=== PATIENT | female | born 1970 | race Caucasian/White ===

== ENCOUNTER → 2024-04-29 | Outpatient (CLI) | payer BC ==
--- NOTE | 2024-05-01 22:41 | MM ---
Reason for Exam: Screening (asymptomatic). Last mammogram was performed 14 year(s) and 0 month(s) ago. Patient History: Menarche at age 8. First Full-Term at age 15. Left ovary removed at age 48. Right ovary removed at age 48. Hysterectomy at age 48. Patient used Progesterone for 1 year. Currently using Hormonal Contraceptives, for 3 years. Paternal grandmother had breast cancer. Risk Values: Kelsi 5 year model risk: 0.9%. NCI Lifetime model risk: 6.7%. Prior Study Comparison: 06/04/2001 Bilateral Special View Mammogram, [facility]. 10/03/2007 Bilateral Diagnostic Mammogram, [facility]. 05/09/2010 Bilateral Diagnostic Mammogram, [facility]. Tissue Density: There are scattered areas of fibroglandular density. Findings: Analyzed By CAD. The pattern is symmetrical. Benign-appearing calcifications within the right breast. No suspicious groups of microcalcifications, spiculated or lobular masses, architectural distortion or other secondary signs of malignancy are mammographically apparent. Overall Assessment: Benign, BI-RAD 2 Management: Screening Mammogram of both breasts in 1 year. A negative mammogram report should not preclude additional follow up of suspicious palpable abnormalities. Patient should continue monthly self breast exam. A clinical breast exam by your physician is recommended on an annual basis and results should be correlated with mammographic findings. Note on Kelsi scores and lifetime risk: 1. A Kelsi score greater than 3% is considered moderate risk. If this is the case, consider specialist referral to assess eligibility for a risk reducing agent. 2. If overall lifetime risk for the development of breast cancer is 20% or higher, the patient may qualify for future screening with alternating mammogram and breast MRI. [facility], , 05/01/2024 10:38 PM. Electronically signed and approved by: Asaf Rider D.O. Radiologis
== END | disposition home or self-care (01) ==
LOC: RADMAMWWP 06:54
PROVIDERS: ATTEND Family Medicine
DX: Z12.31 Encounter for screening mammogram for malignant neoplasm of breast (principal); R92.323 Mammographic fibroglandular density, bilateral breasts; Z80.3 Family history of malignant neoplasm of breast
CPT/HCPCS: 77063; 77067

== ENCOUNTER 2024-04-30 01:27 | Observation (INO) | payer BC ==
--- NOTE | 2024-04-30 01:52 | ED ---
Abdominal Pain HPI - General Source: patient, RN notes reviewed Mode of arrival: wheelchair Limitations: no limitations <Rodney Pate - Last Filed: 04/30/24 03:20> <Tyler Mota - Last Filed: 04/30/24 05:58> - General Chief Complaint: Abdominal Pain Stated Complaint: back pain flank pain Time Seen by Provider: 04/30/24 01:34 - History of Present Illness Initial Comments: 53-year-old female presents emergency department complaint of right upper quadrant abdominal pain. Patient states pain started earlier tonight after she ate some fried fish. Patient states that she does have a history of gallstones in which she was told well. Patient states pain wraps around her upper right upper quadrant and epigastric denies any chest pain shortness of breath she does admit to nausea at the makes the pain feel better or worse at this time. No change in bowel habits she had a prior hysterectomy no history of kidney stones. (Rodney Pate) - Related Data Home Medications Medication Instructions Recorded Confirmed No Known Home Medications 07/18/14 07/18/14 Allergies Allergy/AdvReac Type Severity Reaction Status Date / Time No Known Allergies Allergy Verified 04/30/24 01:34 Review of Systems ROS Other: All systems not noted in ROS Statement are negative. <Rodney Pate - Last Filed: 04/30/24 03:20> ROS Other: All systems not noted in ROS Statement are negative. <Tyler Mota - Last Filed: 04/30/24 05:58> ROS Statement: Those systems with pertinent positive or pertinent negative responses have been documented in the HPI. Past Medical History Past Medical History: Hyperlipidemia History of Any Multi-Drug Resistant Organisms: None Reported Past Surgical History: Hysterectomy Past Psychological History: Depression Smoking Status: Never smoker Past Alcohol Use History: None Reported Past Drug Use History: None Reported <Rodney Pate - Last Filed: 04/30/24 03:20> General Exam Limitations: no limitations General appearance: alert, in no apparent distress Head exam: Present: atraumatic, normocephalic, normal inspection ENT exam: Present: normal exam, mucous membranes moist Neck exam: Present: normal inspection. Absent: tenderness, meningismus, lymphadenopathy Respiratory exam: Present: normal lung sounds bilaterally. Absent: respiratory distress, wheezes, rales, rhonchi, stridor Cardiovascular Exam: Present: regular rate, normal rhythm, normal heart sounds. Absent: systolic murmur, diastolic murmur, rubs, gallop, clicks GI/Abdominal exam: Present: soft, tenderness, normal bowel sounds. Absent: distended, guarding, rebound, rigid <Rodney Pate - Last Filed: 04/30/24 03:20> Course Vital Signs 04/30/24 04/30/24 04/30/24 01:29 02:29 03:32 Temperature 97.5 F L 98.2 F Pulse Rate 65 60 61 Respiratory 18 22 18 Rate Blood Pressure 146/84 151/68 139/83 O2 Sat by Pulse 100 97 97 Oximetry 04/30/24 05:01 Temperature Pulse Rate 58 L Respiratory 17 Rate Blood Pressure 137/69 O2 Sat by Pulse 96 Oximetry Medical Decision Making - Lab Data Result diagrams: 04/30/24 01:51 <Rodney Pate - Last Filed: 04/30/24 03:20> - Lab Data Result diagrams: 04/30/24 01:51 04/30/24 03:43 <Tyler Mota - Last Filed: 04/30/24 05:58> - Medical Decision Making I completed HPI/Physical of this chart signed Rodney Pate PA-C (Rodney Pate) Was pt. sent in by a medical professional or institution (RODRI Perdomo, SUBWAREHOUSE SUPERVISOR, urgent care, hospital, or intermediate...) When possible be specific @ -No Did you speak to anyone other than the patient for history (EMS, parent, family, police, friend...)? What history was obtained from this source @ -No Did you review nursing and triage notes (agree or disagree)? Why? @ -I reviewed and agree with nursing and triage notes Were old charts reviewed (outside hosp., previous admission, EMS record, old EKG, old radiological studies, urgent care reports/EKG's, intermediate records)? Report findings @ -No old charts were reviewed Differential Abdominal Pain Women: Appendicitis, Cholecystitis, diverticulosis, ischemic bowel, pancreatitis, hepatitis, UTI, gastroenteritis, AAA, incarcerated hernia, bowel obstruction, constipation, inflammatory bowel, hepatitis, peptic ulcer disease, splenic infarction, perforated viscus, vulvitis, ovarian torsion, PID, kidney stone, placenta abruption, this is not meant to be an all-inclusive list EKG interpreted by me (3pts min.). @ -As above X-rays interpreted by me (1pt min.). @ -None done CT interpreted by me (1pt min.). @CT shows calcified gallstone in the neck of the gallbladder U/S interpreted by me (1pt. min.). @ -None done What testing was considered but not performed or refused? (CT, X-rays, U/S, labs)? Why? @ -None What meds were considered but not given or refused? Why? @ -None Did you discuss the management of the patient with other professionals (professionals i.e. DrGeovany, PA, SUBWAREHOUSE SUPERVISOR, lab, RT, psych nurse, protective services social worker, digital design engineer, teacher, founder and chief executive officer, wrapper caser)? Give summary @ -[General Surgery, Dr. Davis Was smoking cessation discussed for >3mins.? @ -No Was critical care preformed (if so, how long)? @ -No Were there social determinants of health that impacted care today? How? (Homelessness, low income, unemployed, alcoholism, drug addiction, transportation, low edu. Level, literacy, decrease access to med. care, custodial, rehab)? @ -No Was there de-escalation of care discussed even if they declined (Discuss DNR or withdrawal of care, Hospice)? DNR status @ -No What co-morbidities impacted this encounter? (DM, HTN, Smoking, COPD, CAD, Cancer, CVA, ARF, Chemo, Hep., AIDS, mental health diagnosis, sleep apnea, morbid obesity)? @ -None Was patient admitted / discharged? Hospital course, mention meds given and route, prescriptions, significant lab abnormalities, going to OR and other pertinent info. @ -53-year-old female with nausea vomiting and abdominal pain. Epigastric and right upper quadrant abdominal pain. Normal white blood cell count, normal CMP. CT shows large calcified gallstone. Patient remained symptomatic requiring multiple doses of pain medication. Case discussed with Dr. Davis will admit for acute cholecystitis Undiagnosed new problem with uncertain prognosis? @ -No Drug Therapy requiring intensive monitoring for toxicity (Heparin, Nitro, Insulin, Cardizem)? @ -No Were any procedures done? @ -No Diagnosis/symptom? @ -Acute cholecystitis Acute, or Chronic, or Acute on Chronic? @Yes Uncomplicated (without systemic symptoms) or Complicated (systemic symptoms)? @ -Default Side effects of treatment? @ -No Exacerbation, Progression, or Severe Exacerbation? @ -No Poses a threat to life or bodily function? How? (Chest pain, [place], [place], pneumonia, PE, COPD, DKA, ARF, appy, cholecystitis, CVA, Diverticulitis, Homicidal, Suici annabelle, threat to staff... and all critical care pts) @ -[Yes, sepsis ([email or web address]) - Lab Data Lab Results 04/30/24 04/30/24 04/30/24 Range/Units 01:51 01:51 01:51 WBC 7.1 (3.8-10.6) k/uL RBC 4.96 (3.80-5.40) m/uL Hgb 14.9 (11.4-16.0) gm/dL Hct 43.9 (34.0-46.0) % MCV 88.5 (80.0-100.0) fL MCH 30.1 (25.0-35.0) pg MCHC 34.0 (31.0-37.0) g/dL RDW 12.7 (11.5-15.5) % Plt Count 245 (150-450) k/uL MPV 7.6 Neutrophils % 59 % Lymphocytes % 32 % Monocytes % 5 % Eosinophils % 1 % Basophils % 1 % Neutrophils # 4.2 (1.3-7.7) k/uL Lymphocytes # 2.3 (1.0-4.8) k/uL Monocytes # 0.4 (0-1.0) k/uL Eosinophils # 0.1 (0-0.7) k/uL Basophils # 0.0 (0-0.2) k/uL PT 10.3 (10.0-12.5) sec INR 0.9 (<1.2) APTT 24.2 (22.0-30.0) sec Sodium (137-145) mmol/L Potassium (3.5-5.1) mmol/L Chloride (98-107) mmol/L Carbon Dioxide (22-30) mmol/L Anion Gap mmol/L BUN (7-17) mg/dL Creatinine (0.52-1.04) mg/dL Est GFR (CKD-EPI)AfAm (>60 ml/min/1.73 sqM) Est GFR (CKD-EPI)NonAf (>60 ml/min/1.73 sqM) Glucose (74-99) mg/dL Lactic Ac Sepsis Rflx Plasma Lactic Acid Bib 3.3 H* (0.7-2.0) mmol/L Calcium (8.4-10.2) mg/dL Total Bilirubin (0.2-1.3) mg/dL AST (14-36) U/L ALT (4-34) U/L Alkaline Phosphatase (38-126) U/L Total Protein (6.3-8.2) g/dL Albumin (3.5-5.0) g/dL Lipase (23-300) U/L Urine Color Urine Appearance (Clear) Urine pH (5.0-8.0) Ur Specific Mineral (1.001-1.035) Urine Protein (Negative) Urine Glucose (UA) (Negative) Urine Ketones (Negative) Urine Blood (Negative) Urine Nitrite (Negative) Urine Bilirubin (Negative) Urine Urobilinogen (<2.0) mg/dL Ur Leukocyte Esterase (Negative) 04/30/24 04/30/24 04/30/24 Range/Units 03:07 03:39 03:43 WBC (3.8-10.6) k/uL RBC (3.80-5.40) m/uL Hgb (11.4-16.0) gm/dL Hct (34.0-46.0) % MCV (80.0-100.0) fL MCH (25.0-35.0) pg MCHC (31.0-37.0) g/dL RDW (11.5-15.5) % Plt Count (150-450) k/uL MPV Neutrophils % % Lymphocytes % % Monocytes % % Eosinophils % % Basophils % % Neutrophils # (1.3-7.7) k/uL Lymphocytes # (1.0-4.8) k/uL Monocytes # (0-1.0) k/uL Eosinophils # (0-0.7) k/uL Basophils # (0-0.2) k/uL PT (10.0-12.5) sec INR (<1.2) APTT (22.0-30.0) sec Sodium 136 L (137-145) mmol/L Potassium 3.8 (3.5-5.1) mmol/L Chloride 107 (98-107) mmol/L Carbon Dioxide 28 (22-30) mmol/L Anion Gap 1 mmol/L BUN 7 (7-17) mg/dL Creatinine 0.51 L (0.52-1.04) mg/dL Est GFR (CKD-EPI)AfAm >90 (>60 ml/min/1.73 sqM) Est GFR (CKD-EPI)NonAf >90 (>60 ml/min/1.73 sqM) Glucose 134 H (74-99) mg/dL Lactic Ac Sepsis Rflx Y Plasma Lactic Acid Bib (0.7-2.0) mmol/L Calcium 8.2 L (8.4-10.2) mg/dL Total Bilirubin 0.5 (0.2-1.3) mg/dL AST 29 (14-36) U/L ALT 27 (4-34) U/L Alkaline Phosphatase 73 (38-126) U/L Total Protein 6.4 (6.3-8.2) g/dL Albumin 3.9 (3.5-5.0) g/dL Lipase 109 (23-300) U/L Urine Color Colorless Urine Appearance Clear (Clear) Urine pH 8.0 (5.0-8.0) Ur Specific Mineral 1.011 (1.001-1.035) Urine Protein Negative (Negative) Urine Glucose (UA) Trace H (Negative) Urine Ketones 2+ H (Negative) Urine Blood Negative (Negative) Urine Nitrite Negative (Negative) Urine Bilirubin Negative (Negative) Urine Urobilinogen <2.0 (<2.0) mg/dL Ur Leukocyte Esterase Negative (Negative) Disposition <Rodney Pate - Last Filed: 04/30/24 03:20> Is patient prescribed a controlled substance at d/c from ED?: No Time of Disposition: 05:58 <Tyler Mota - Last Filed: 04/30/24 05:58> Clinical Impression: Acute cholecystitis Disposition: ADMITTED IP TO THIS HOSP Condition: Stable Referrals: Nick Dennis DO [Primary Care Provider] - 1-2 days
[2024-04-30] MEDS: SODIUM CHLORIDE 0.9% 1,000 ML IV STA (01:55)
[2024-04-30] MEDS: ONDANSETRON 4 MG/2 ML VIAL IVP STA ×2 (01:56→05:49)
[2024-04-30] MEDS: KETOROLAC 15 MG/ML 1 ML VIAL IVP STA (01:59)
[2024-04-30] MEDS: SODIUM CHLORIDE 0.9% 500 ML 500 ML IV STA (02:02)
[2024-04-30 02:13] LABS: Basophils % (A) 1 %; Eosinophils # (A) 0.1 k/uL (0-0.7); Eosinophils % (A) 1 %; HCT 43.9 % (34.0-46.0); HGB 14.9 gm/dL (11.4-16.0); Lymphocytes # (A) 2.3 k/uL (1.0-4.8); Lymphocytes % (A) 32 %; MCH 30.1 pg (25.0-35.0); MCV 88.5 fL (80.0-100.0); Mean Platelet Volume 7.6; Monocytes # (A) 0.4 k/uL (0-1.0); Monocytes % (A) 5 %; Neutrophils # (A) 4.2 k/uL (1.3-7.7); Neutrophils % (A) 59 %; Platelet Count 245 k/uL (150-450); RBC 4.96 m/uL (3.80-5.40); RDW 12.7 % (11.5-15.5); WBC 7.1 k/uL (3.8-10.6)
[2024-04-30] MEDS: HYDROmorphone 0.5 MG/0.5 ML SYRINGE IVP STA ×3 (02:31→05:53)
[2024-04-30 02:46] LABS: INR 0.9 (<1.2); Partial Thromboplastin Time 24.2 sec (22.0-30.0); Prothrombin Time 10.3 sec (10.0-12.5)
[2024-04-30 03:29] LABS: Appearance,Urine Clear (Clear); Bilirubin,Urine Negative (Negative); Blood,Urine Negative (Negative); Color,Urine Colorless; Glucose,Urine (UA) Trace (Negative); Ketones,Urine 2+ (Negative); Leukocyte Esterase,Urine Negative (Negative); Nitrite,Urine Negative (Negative); Protein,Urine Negative (Negative); Specific Gravity,Urine 1.011 (1.001-1.035); Urobilinogen,Urine <2.0 mg/dL (<2.0)
[2024-04-30 04:16] LABS: ALT 27 U/L (4-34); AST 29 U/L (14-36); African American GFR (CKD) >90 (>60 ml/min/1.73 sqM); Albumin 3.9 g/dL (3.5-5.0); Alkaline Phosphatase 73 U/L (38-126); Anion Gap 1 mmol/L; Blood Urea Nitrogen 7 mg/dL (7-17); Calcium 8.2 mg/dL (8.4-10.2); Carbon Dioxide 28 mmol/L (22-30); Chloride 107 mmol/L (98-107); Glucose 134 mg/dL (74-99); Lipase 109 U/L (23-300); Non-African American GFR(CKD) >90 (>60 ml/min/1.73 sqM); Potassium 3.8 mmol/L (3.5-5.1); Sodium 136 mmol/L (137-145); Total Bilirubin 0.5 mg/dL (0.2-1.3); Total Protein 6.4 g/dL (6.3-8.2)
[2024-04-30] MEDS: SODIUM CHLORIDE 0.9% 1,000 ML IV SCH (04:33)
--- NOTE | 2024-04-30 05:37 | CT ---
EXAMINATION TYPE: CT abdomen pelvis w con DATE OF EXAM: 04/30/2024 HISTORY: Abdominal and particular right flank pain into back with nausea and vomiting CT DLP: 632mGycm Automated Exposure Control for Dose Reduction was Utilized. CONTRAST: CT scan of the abdomen and pelvis is performed with IV Contrast, patient injected with 100 mL of Isov ue 300. COMPARISON: None. FINDINGS: LUNG BASES: Elevated left hemidiaphragm. Mild cardiomegaly. LIVER/GB: Large internal gallstones. Gallbladder shows no surrounding fat stranding. The liver is het erogeneously hypodense suggesting diffuse fatty infiltration. No biliary dilatation. PANCREAS: No significant abnormality is seen. SPLEEN: No significant abnormality is seen. ADRENALS: No significant abnormality is seen. KIDNEYS:. There is 1.9 cm simple appearing thin-walled cyst centrally in the left kidney delayed axia l image 37. Symmetric cortical medullary uptake and excretion is seen bilaterally without hydronephro sis. Mildly distended bladder without intraluminal calculus. BOWEL: No significant abnormality is seen. UTERUS/ADNEXA: Uterus is surgically absent. Scattered bilateral pelvic phleboliths are seen. LYMPH NODES: No greater than 1cm abdominal or pelvic lymph nodes are appreciated. OSSEOUS STRUCTURES: Moderate disc space narrowing with vacuum disc phenomenon at the lumbosacral junc tion. OTHER: There are a few ventricle wall hernias and eventrations near the midline. 1 contains portion o f transverse colon axial image 40 and 2 contains portions of small bowel loops axial images 52 and 58 respectively. IMPRESSION: 1. No renal stones or hydronephrosis is seen bilaterally. 2. There are eventrations and/or ventral wall hernias containing bowel in the midline of the anterior abdominal wall. No bowel obstruction is present. 3. Gallstones without CT evidence for acute cholecystitis. [facility], , 04/30/2024 5:34 AM
[2024-04-30] MEDS ORDERED: ONDANSETRON 4 MG/2 ML VIAL IVP PRN (05:56)
[2024-04-30] MEDS ORDERED: NALOXONE 0.4 MG/ML 1 ML VIAL IV PRN (05:56)
[2024-04-30] MEDS: PIPERACILLIN-TAZOBACTAM 3.375 GM in SODIUM CHLORIDE 0.9% 100 ML IVPB SCH ×2 (08:19→20:57)
[2024-04-30] MEDS: HYDROmorphone 0.5 MG/0.5 ML SYRINGE IVP PRN (09:11)
[2024-04-30] MEDS: PANTOPRAZOLE 40 MG/10 ML VIAL IVP SCH ×2 (12:28→20:58)
--- NOTE | 2024-04-30 14:15 | P.GSHP ---
History of Present Illness H&P Date: 04/30/24 CHIEF COMPLAINT: Abdominal pain HISTORY OF PRESENT ILLNESS: This is a 53-year-old female who presented to the hospital with complaints of epigastric and right upper quadrant abdominal pain that started last night around 1030. Earlier in the afternoon patient reports that she had eaten fried cod and [place] fries. Patient does have a known history of gallstones. She has been having nausea no vomiting. Patient had a CAT scan completed that reported a ventral hernia with bowel but no bowel obst ruction and evidence of gallstones. Patient denies any cardiac history. Her abdominal surgical history includes a hysterectomy in 2019 and since then has had a ventral hernia. PAST MEDICAL HISTORY: Hyperlipidemia, gallstones PAST SURGICAL HISTORY: Hysterectomy MEDICATIONS: See below ALLERGIES: See below SOCIAL HISTORY: No illicit drug use. REVIEW OF SYSTEMS: CONSTITUTIONAL: Denies fever or chills. HEENT: Denies blurred vision, vision changes, or eye pain. Denies hemoptysis CARDIOVASCULAR: Denies chest pain or pressure. RESPIRATORY: No shortness of breath. GASTROINTESTINAL: See HPI for pertinent findings HEMATOLOGIC: Denies bleeding disorders. GENITOURINARY: Denies any blood in urine or increased urinary frequency. SKIN: Denies pruitis. Denies rash. PHYSICAL EXAM: VITAL SIGNS: Reviewed GENERAL: Well-developed in no acute distress. HEENT: No sclera icterus. Extraocular movements grossly intact. Moist buccal mucosa. Head is atraumatic, normocephalic. No nasal drainage. ABDOMEN: Soft. Nondistended. Tenderness palpation epigastric area and right upper quadrant. Ventral hernia present NEUROLOGIC: Alert and oriented. Cranial nerves II through XII grossly intact. LABORATORY DATA: WBC 7.1 Hgb 14.9 platelets 245 Sodium 136 potassium 3.8 creatinine 0.51 Lactic acid 3.3 down to 1.5 IMAGING: CT scan abdomen pelvis reports no renal stones or hydronephrosis. Ventral wall hernias containing bowel in the midline of the anterior abdominal wall no bowel obstruction present. Gallstones without CT evidence for acute cholecystitis. ASSESSMENT: 1. Symptomatic cholelithiasis 2. Cholecystitis PLAN: -Patient scheduled for laparoscopic cholecystectomy today with Dr. Davis -Keep patient n.p.o. -Continue antibiotics -Continue antiemetics -Continue IV fluids -Medical service consulted for medical management Physician Currency Machine Operator note has been reviewed by physician. Signing provider agrees with the documented findings, assessment, and plan of care. Past Medical History Past Medical History: Hyperlipidemia History of Any Multi-Drug Resistant Organisms: None Reported Past Surgical History: Hysterectomy Past Psychological History: Depression Smoking Status: Never smoker Past Alcohol Use History: None Reported Past Drug Use History: None Reported Medications and Allergies Home Medications Medication Instructions Recorded Confirmed Type Atorvastatin [Lipitor] 20 mg PO HS 04/30/24 04/30/24 History Ciclopirox Olamine Cream [Ciclodan] 1 applic TOPICAL BID 04/30/24 04/30/24 History Desvenlafaxine Succinate [Pristiq 50 mg PO DAILY 04/30/24 04/30/24 History ER] Docusate [Colace] 100 mg PO DAILY 04/30/24 04/30/24 History Sennosides [Senokot] 8.6 mg PO HS 04/30/24 04/30/24 History Allergies Allergy/AdvReac Type Severity Reaction Status Date / Time No Known Allergies Allergy Verified 04/30/24 08:29 Surgical - Exam Vital Signs Temp Pulse Resp BP Pulse Ox 97.5 F L 65 18 146/84 100 04/30/24 01:29 04/30/24 01:29 04/30/24 01:29 04/30/24 01:29 04/30/24 01:29 Results - Labs 04/30/24 01:51 04/30/24 03:43 Abnormal Lab Results - Last 24 Hours (Table) 04/30/24 04/30/24 04/30/24 Range/Units 01:51 03:07 03:43 Sodium 136 L (137-145) mmol/L Creatinine 0.51 L (0.52-1.04) mg/dL Glucose 134 H (74-99) mg/dL Plasma Lactic Acid Bib 3.3 H* (0.7-2.0) mmol/L Calcium 8.2 L (8.4-10.2) mg/dL Urine Glucose (UA) Trace H (Negative) Urine Ketones 2+ H (Negative) Diabetes panel 04/30/24 Range/Units 03:43 Sodium 136 L (137-145) mmol/L Potassium 3.8 (3.5-5.1) mmol/L Chloride 107 (98-107) mmol/L Carbon Dioxide 28 (22-30) mmol/L BUN 7 (7-17) mg/dL Creatinine 0.51 L (0.52-1.04) mg/dL Glucose 134 H (74-99) mg/dL Calcium 8.2 L (8.4-10.2) mg/dL AST 29 (14-36) U/L ALT 27 (4-34) U/L Alkaline Phosphatase 73 (38-126) U/L Total Protein 6.4 (6.3-8.2) g/dL Albumin 3.9 (3.5-5.0) g/dL Calcium panel 04/30/24 Range/Units 03:43 Calcium 8.2 L (8.4-10.2) mg/dL Albumin 3.9 (3.5-5.0) g/dL Pituitary panel 04/30/24 Range/Units 03:43 Sodium 136 L (137-145) mmol/L Potassium 3.8 (3.5-5.1) mmol/L Chloride 107 (98-107) mmol/L Carbon Dioxide 28 (22-30) mmol/L BUN 7 (7-17) mg/dL Creatinine 0.51 L (0.52-1.04) mg/dL Glucose 134 H (74-99) mg/dL Calcium 8.2 L (8.4-10.2) mg/dL Adrenal panel 04/30/24 Range/Units 03:43 Sodium 136 L (137-145) mmol/L Potassium 3.8 (3.5-5.1) mmol/L Chloride 107 (98-107) mmol/L Carbon Dioxide 28 (22-30) mmol/L BUN 7 (7-17) mg/dL Creatinine 0.51 L (0.52-1.04) mg/dL Glucose 134 H (74-99) mg/dL Calcium 8.2 L (8.4-10.2) mg/dL Total Bilirubin 0.5 (0.2-1.3) mg/dL AST 29 (14-36) U/L ALT 27 (4-34) U/L Alkaline Phosphatase 73 (38-126) U/L Total Protein 6.4 (6.3-8.2) g/dL Albumin 3.9 (3.5-5.0) g/dL
[2024-04-30] MEDS: HEPARIN SODIUM,PORCINE 5,000 UNIT/ML 1 ML VIAL SQ SCH (14:44)
[2024-04-30] MEDS: ONDANSETRON 4 MG/2 ML VIAL IVP PRN (15:18)
[2024-04-30] MEDS: DEXAMETHASONE SOD PHOSPHATE 4 MG/ML 1 ML VIAL IVP STA (15:19)
[2024-04-30] MEDS: IV FLUID CONTINUATION 1,000 ML IV ONE (15:20)
[2024-04-30] MEDS: LIDOCAINE 1%-EPI 1:100,000 20 ML VIAL SQ ONE ×2 (16:00→17:01)
[2024-04-30] MEDS ORDERED: GLYCOPYRROLATE 0.2 MG/ML 2 ML VIAL ONE (16:36)
[2024-04-30] MEDS ORDERED: PROPOFOL 10 MG/ML 20 ML VIAL IV ONE (16:36)
[2024-04-30] MEDS ORDERED: PHENYLEPHRINE 10 MG/ML VIAL ONE (16:36)
[2024-04-30] MEDS ORDERED: fentaNYL (PF) 50 MCG/ML 2 ML AMP ONE (16:36)
[2024-04-30] MEDS ORDERED: SUCCINYLCHOLINE CHLORIDE 200 MG/10 ML VIAL IV ONE (16:36)
[2024-04-30] MEDS ORDERED: LIDOCAINE 1% INJ 10MG/ML (20 ML MDV) ONE (16:36)
[2024-04-30] MEDS ORDERED: NEOSTIGMINE 1 MG/ML 10 ML VIAL ONE (16:36)
[2024-04-30] MEDS ORDERED: ROCURONIUM 10 MG/ML (5 ML VIAL) IV ONE (16:36)
[2024-04-30] MEDS: LACTATED RINGERS 1,000 ML IV ONE (17:54)
--- NOTE | 2024-04-30 18:03 | P.OP ---
Date of Procedure: 04/30/24 Preoperative Diagnosis: Cholecystitis Cholelithiasis Postoperative Diagnosis: Cholecystitis Cholelithiasis Adhesions Procedure(s) Performed: Laparoscopic lysis of extensive adhesions Laparoscopic cholecystectomy Anesthesia: KITTY Surgeon: Baldo Davis Estimated Blood Loss (ml): 25 Pathology: other (Gallbladder) Condition: stable Disposition: PACU Description of Procedure: The patient was placed on the operative table in the supine position. She received general endotracheal anesthesia. Her abdomen was prepped and draped you sterile fashion. Patient had a midline scar. We extended fpc up to the epigastric area. Due to the scar a Veress needle was placed in the left upper quadrant. There was not good gas flow. There appeared to be adhesions left upper quadrant. Next using a 5 mm optical trocar direct vision the peritoneal cavity is entered in the right mid abdomen position. After adequate deflation the laparoscope placed back Liparol cavity. There were extensive he is located along the midline scar. Another 5 mm trocar was then placed in the right lateral position. The adhesions were lysed with sharp dissection. The trocar was then placed in the epigastric vision and then another 5 mm trocars placed in the right periumbilical position. The patient was placed in the reverse Trendelenburg right side up position. Traction the gallbladder is placed in a lateral and cephalad position. The cystic duct was then bluntly dissected using a pusher. And then the critical view of safety was achieved to the cystic duct common bile duct and common hepatic duct. Cystic duct was then suture-ligated with 2-0 Ethibond suture and the tie knot device. And then using robotic scissors the cystic duct was divided. Cystic artery was then divided using robotic scissors. The gallbladder through the liver bed using the harmonic scissors. Several small bleeding points were coagulated electrocautery. The gallbladder was extracted through the epigastric port site. There were several large stones in the gallbladder. The abdomen. There is no bleeding seen. The area of the left upper quadrant where the Veress needle was initially placed with exam. There is no evidence of any injury to the stomach or small bowel. Th skin was then closed in a 3-0 Monocryl suture. Dermabond dressing applied. Patient tolerated well. She was sent to recovery room in stable condition.
--- NOTE | 2024-04-30 19:41 | CONS ---
CONSULTATION REASON FOR CONSULTATION: Advice regarding hyperlipidemia and other medical issues, requested by Surgery. HISTORY OF PRESENT ILLNESS: This is a 53-year-old woman with a past medical history of hyperlipidemia, depression, admitted with severe abdominal pain. Evaluation showed cholelithiasis and the patient was admitted for further evaluation and treatment. There is no history of any fever, rigors, or chills at this time. PAST MEDICAL HISTORY: Reviewed include hyperlipidemia, history of depression. HOME MEDICATIONS: Reviewed include Lipitor. Dose and rest of medications reviewed. ALLERGIES: None. FAMILY HISTORY: No history of heart disease or strokes in the family. SOCIAL HISTORY: No history of smoking. REVIEW OF SYSTEMS: Fourteen-point review is negative except as mentioned earlier. PHYSICAL EXAMINATION: VITAL SIGNS: Pulse 59, blood pressure 129/70, respirations 17. HEENT: Conjunctivae normal. CARDIOVASCULAR: S1, S2. RESPIRATIONS: Breath sounds diminished at the bases. ABDOMEN: Soft, obese, severe diffuse tenderness present especially in the right hypochondrium. No guarding. No rigidity. LEGS: No edema. NERVOUS SYSTEM: Nonfocal. LABORATORY DATA: Lactic acid 3.3. The rest of the labs are noted. ASSESSMENT: 1. Severe abdominal pain, possibly acute cholelithiasis with possible acute cholecystitis. 2. Elevated lactic acid. 3. Mild hyponatremia. 4. Hyperlipidemia. 5. History of depression. RECOMMENDATIONS AND DISCUSSION: This is a 53-year-old woman, who presented with multiple complex medical issues, we will monitor the patient closely. Recommend to continue current medications. Surgery has been consulted and the patient is currently medically stable. We will follow the patient closely. Recommend pain management, Protonix and continue to monitor. Further recommendations to follow. See orders for further details. MMODL / IJN: [id number] /
[2024-04-30] MEDS ORDERED: HYDROmorphone 1 MG/ML 1 ML SYRINGE IVP PRN (22:30)
[2024-05-01 02:34] VITALS: RESP 16
[2024-05-01] MEDS: ACETAMINOPHEN TAB 325 MG TAB PO PRN (05:16)
[2024-05-01] MEDS: LACTATED RINGERS 1,000 ML IV SCH (06:30)
[2024-05-01 07:50] VITALS: BP 108/69; PULSE 63; TEMP 98.4
[2024-05-01] MEDS ORDERED: HYDROcodone/APAP 5-325MG 1 EACH TAB PO PRN (10:41)
[2024-05-01 10:45] LABS: Basophils # (A) 0.01 X 10*3/uL (0.00-0.10); Basophils % (A) 0.1 %; Eosinophils # (A) 0 X 10*3/uL (0.04-0.35); Eosinophils % (A) 0 %; HCT 36.9 % (37.2-46.3); HGB 12.5 g/dL (12.0-15.0); Lymphocytes # (A) 1.85 X 10*3/uL (0.90-5.00); Lymphocytes % (A) 19.9 %; MCH 29.8 pg (27.0-32.0); MCHC 33.9 g/dL (32.0-37.0); MCV 88.1 FL (80.0-97.0); Mean Platelet Volume 10.6 FL (9.5-12.2); Monocytes # (A) 0.74 X 10*3/uL (0.20-1.00); NRBC Per 100 WBC 0 X 10*3/uL (0.00-0.01); Neutrophils # (A) 6.65 X 10*3/uL (1.80-7.70); Neutrophils % (A) 71.7 %; Platelet Count 240 X 10*3/uL (140-440); RBC 4.19 X 10*6/uL (4.10-5.20); RDW 13.2 % (11.5-14.5); WBC 9.28 X 10*3/uL (4.50-10.00)
[2024-05-01 10:59] LABS: BUN/Creat Ratio 11.29 Ratio (12.00-20.00); Blood Urea Nitrogen 7.9 mg/dL (9.0-27.0); Glucose 136 mg/dL (70-110)
[2024-05-01 11:00] LABS: ALT 70 U/L (8-44); AST 66 U/L (13-35); Albumin 3.9 g/dL (3.8-4.9); Alkaline Phosphatase 67 U/L (41-126); Calcium 8.9 mg/dL (8.7-10.3); Carbon Dioxide 24.4 mmol/L (21.6-31.8); Chloride 104 mmol/L (96-109); Globulin 2.3 g/dL (1.6-3.3); Potassium 4.1 mmol/L (3.5-5.5); Sodium 138 mmol/L (135-145); Total Bilirubin 0.6 mg/dL (0.3-1.2); Total Protein 6.2 g/dL (6.2-8.2)
--- NOTE | 2024-05-01 11:41 | P.DS ---
Providers Date of admission: 04/30/24 05:56 Expected date of discharge: 05/01/24 Attending physician: Baldo Davis Consults: 04/30/24 11:03 Consult Physician Routine Consulting Provider: Kiera Dejesus Consult Reason/Comments: medical managementf Do you want consulting provider notified?: Yes Placement Type Exists?: Yes Primary care physician: Nick Dennis Hospital Course: Discharge diagnosis 1. Acute cholecystitis 2. Cholelithiasis 3. Adhesions Hospital course This is a 53-year-old female who presented with right upper quadrant abdominal pain after eating fried cod and [place] fries. Patient had a CAT scan completed that reported a ventral hernia with bowel but no bowel obstruction and evidence of gallstones. Patient is status post laparoscopic cholecystectomy and lysis of extensive adhesions. Patient tolerated surgery well. Her pain is controlled. She is tolerating diet. She is afebrile. She has been up and ambulating. She is stable for discharge. Please refer to chart for any further details. Physician Ibm Bpm Architect note has been reviewed by physician. Signing provider agrees with the documented findings, assessment, and plan of care. Patient Condition at Discharge: Stable Plan - Discharge Summary Discharge Rx Participant: No New Discharge Prescriptions: New Ibuprofen [Motrin] 600 mg PO Q8HR PRN #30 tab PRN Reason: Pain HYDROcodone/APAP 5-325MG [[place] 5-325] 1 tab PO Q6HR PRN 3 Days #12 tab PRN Reason: Pain Continue Sennosides [Senokot] 8.6 mg PO HS Desvenlafaxine Succinate [Pristiq ER] 50 mg PO DAILY Docusate [Colace] 100 mg PO DAILY Ciclopirox Olamine Cream [Ciclodan] 1 applic TOPICAL BID Atorvastatin [Lipitor] 20 mg PO HS Discharge Medication List Atorvastatin [Lipitor] 20 mg PO HS 04/30/24 [History] Ciclopirox Olamine Cream [Ciclodan] 1 applic TOPICAL BID 04/30/24 [History] Desvenlafaxine Succinate [Pristiq ER] 50 mg PO DAILY 04/30/24 [History] Docusate [Colace] 100 mg PO DAILY 04/30/24 [History] Sennosides [Senokot] 8.6 mg PO HS 04/30/24 [History] HYDROcodone/APAP 5-325MG [[place] 5-325] 1 tab PO Q6HR PRN 3 Days #12 tab 05/01/24 [Rx] Ibuprofen [Motrin] 600 mg PO Q8HR PRN #30 tab 05/01/24 [Rx] Follow up Appointment(s)/Referral(s): Nick Dennis DO [Primary Care Provider] - 1-2 days Baldo Davis MD [STAFF PHYSICIAN] - 05/07/24 2:30 pm Patient Instructions/Handouts: Laparoscopic Cholecystectomy (DC) Activity/Diet/Wound Care/Special Instructions: No driving while taking [place] No lifting over 10 pounds Shower daily. No soaking or tub baths for 2 weeks Very light activity until you are reevaluated at your follow up appointment with your surgeon Remain off of work until seen by surgeon at follow up visit Discharge Disposition: HOME SELF-CARE
--- NOTE | 2024-05-02 02:08 | PN ---
PROGRESS NOTE DATE OF SERVICE: 05/01/2024 SUBJECTIVE: This is a 53-year-old woman, who was admitted with severe abdominal pain, cholelithiasis, cholecystitis, and underwent cholecystectomy. No chest pain. No palpitation. OBJECTIVE: VITAL SIGNS: Pulse 68, blood pressure 108/69, respirations 16. CHEST: Clear to auscultation. CARDIOVASCULAR: S1, S2. ABDOMEN: Soft, status post surgery. LABORATORY DATA: Noted. ASSESSMENT: 1. Abdominal pain with acute cholelithiasis and cholecystitis, status post laparoscopic cholecystectomy. 2. Elevated lactic acid, improved. 3. Mild hyponatremia. 4. Hyperlipidemia. 5. History of depression. RECOMMENDATIONS AND DISCUSSION: Recommend to continue current management. Continue symptomatic treatment. Otherwise, closely follow with Primary Physician and Surgery. Further recommendations to follow. MMODL / IJN: [id number] /
== END 2024-05-01 12:58 | disposition home or self-care (01) ==
LOC: EC 01:27 → 6NMEDSUR 05:56
PROVIDERS: ADMIT Surgery; ATTEND Surgery
DX: K80.00 Calculus of gallbladder with acute cholecystitis without obstruction (principal); K66.0 Peritoneal adhesions (postprocedural) (postinfection); E87.20 Acidosis, unspecified; E87.1 Hypo-osmolality and hyponatremia; K43.9 Ventral hernia without obstruction or gangrene; E78.5 Hyperlipidemia, unspecified; F32.A Depression, unspecified; Z79.899 Other long term (current) drug therapy; Z90.710 Acquired absence of both cervix and uterus
CPT/HCPCS: 47562; 96376 ×3; 96366 ×3; 96372; 96361; 96365; 96375; 99285; 36415; 88304; 80053 ×2; 83605; 83690; 85025 ×2; 85610; 85730; 81003; 87040; 74177; G0378 ×2; J2543 ×2; J0330; J1644 ×2; J1100; J2710; J2405; J2003; J3010; J1885; J2704; J1171; Q9967; J2371; J1596; J2470 ×2

== ENCOUNTER 2024-08-06 18:59 | Emergency (ER) | payer BC ==
--- NOTE | 2024-08-06 19:25 | ED ---
Abdominal Pain HPI - General Chief Complaint: Abdominal Pain Stated Complaint: numbness, vomiting Time Seen by Provider: 08/06/24 19:21 Source: patient, family, RN notes reviewed Mode of arrival: wheelchair Limitations: no limitations - History of Present Illness Initial Comments: 54-year-old female presenting for nausea/vomiting x 3 hours. States she was at work when she suddenly began to feel nauseous and states she has had constant vomiting since. Admits to diffuse abdominal pain that radiates into the back. Also states she is having numbness and pain in her arms and her legs. Denies chest pain or shortness of breath. Denies blood thinners. Denies cardiac history. States she has a history of a ventral hernia. Underwent laparoscopic cholecystectomy 3 months ago. - Related Data Home Medications Medication Instructions Recorded Confirmed Atorvastatin [Lipitor] 40 mg PO DAILY 08/06/24 08/06/24 Desvenlafaxine Succinate [Pristiq 25 mg PO DAILY 08/06/24 08/06/24 ER] Multivitamins, Thera [Multivitamin 1 tab PO DAILY 08/06/24 08/06/24 (formulary)] Ubidecarenone [Coenzyme Q10] 100 mg PO DAILY 08/06/24 08/06/24 Vitamin B Complex 1 cap PO DAILY 08/06/24 08/06/24 Vitamin C/Biotin [Hair, Skin and 1 tab PO DAILY 08/06/24 08/06/24 Nails Chew] Zinc Gluconate [Zinc] 50 mg PO DAILY 08/06/24 08/06/24 Allergies Allergy/AdvReac Type Severity Reaction Status Date / Time No Known Allergies Allergy Verified 08/06/24 20:23 Review of Systems ROS Statement: Those systems with pertinent positive or pertinent negative responses have been documented in the HPI. ROS Other: All systems not noted in ROS Statement are negative. Past Medical History Past Medical History: Hyperlipidemia Additional Past Medical History / Comment(s): Uterine cancer History of Any Multi-Drug Resistant Organisms: None Reported Past Surgical History: Hysterectomy Past Psychological History: Depression Smoking Status: Never smoker Past Alcohol Use History: None Reported Past Drug Use History: None Reported General Exam Limitations: no limitations General appearance: alert, in no apparent distress Head exam: Present: atraumatic, normocephalic, normal inspection Eye exam: Present: normal appearance, PERRL, EOMI. Absent: scleral icterus, conjunctival injection, periorbital swelling Respiratory exam: Present: normal lung sounds bilaterally. Absent: respiratory distress, wheezes, rales, rhonchi, stridor Cardiovascular Exam: Present: regular rate, normal rhythm, normal heart sounds. Absent: systolic murmur, diastolic murmur, rubs, gallop, clicks GI/Abdominal exam: Present: soft, normal bowel sounds. Absent: distended, tenderness, guarding, rebound, rigid Back exam: Absent: CVA tenderness (R), CVA tenderness (L) Neurological exam: Present: alert, oriented X3 Psychiatric exam: Present: normal affect, normal mood Skin exam: Present: warm, dry, intact, normal color. Absent: rash Course Vital Signs 08/06/24 08/06/24 08/06/24 19:01 19:16 22:31 Temperature 97.4 F L Pulse Rate 80 75 75 Respiratory 24 18 16 Rate Blood Pressure 176/132 145/87 136/78 O2 Sat by Pulse 99 96 94 L Oximetry Medical Decision Making - Medical Decision Making Was pt. sent in by a medical professional or institution (, PA, DRAGLINE OILER, urgent care, hospital, or senior care...) When possible be specific @ -No Did you speak to anyone other than the patient for history (EMS, parent, family, police, friend...)? What history was obtained from this source @ -No Did you review nursing and triage notes (agree or disagree)? Why? @ -I reviewed and agree with nursing and triage notes Were old charts reviewed (outside hosp., previous admission, EMS record, old EKG, old radiological studies, urgent care reports/EKG's, senior care records)? Report findings @ -No old charts were reviewed Differential Diagnosis (chest pain, altered mental status, abdominal pain women, abdominal pain men, vaginal bleeding, weakness, fever, dyspnea, syncope, headache, dizziness, GI bleed, back pain, seizure, CVA, palpatations, mental health, musculoskeletal)? @ -Differential Abdominal Pain Women: Appendicitis, Cholecystitis, diverticulosis, ischemic bowel, pancreatitis, hepatitis, UTI, gastroenteritis, AAA, incarcerated hernia, bowel obstruction, constipation, inflammatory bowel, hepatitis, peptic ulcer disease, splenic infarction, perforated viscus, vulvitis, ovarian torsion, PID, kidney stone, pl acenta abruption, this is not meant to be an all-inclusive list EKG interpreted by me (3pts min.). @ -As above X-rays interpreted by me (1pt min.). @ -None done CT interpreted by me (1pt min.). @ -CT abdomen pelvis reveals ventral hernias containing portions of small and large bowel compatible with Parth hernia, no evidence for obstruction. Hepatic steatosis. Watery content in the colon correlate for diarrhea U/S interpreted by me (1pt. min.). @ -None done What testing was considered but not performed or refused? (CT, X-rays, U/S, labs)? Why? @ -None What meds were considered but not given or refused? Why? @ -None Did you discuss the management of the patient with other professionals (pr ofessionals i.e. , PA, DRAGLINE OILER, lab, RT, psych nurse, social media project manager, scale balancer, teacher, promotion officer, case management social worker)? Give summary @ -No Was smoking cessation discussed for >3mins.? @ -No Was critical care preformed (if so, how long)? @ -No Were there social determinants of health that impacted care today? How? (Homelessness, low income, unemployed, alcoholism, drug addiction, transportation, low edu. Level, literacy, decrease access to med. care, retirement, rehab)? @ -No Was there de-escalation of care discussed even if they declined (Discuss DNR or withdrawal of care, Hospice)? DNR status @ -No What co-morbidities impacted this encounter? (DM, HTN, Smoking, COPD, CAD, Cancer, CVA, ARF, Chemo, Hep., AIDS, mental health diagnosis, sleep apnea, morbid obesity)? @ -None Was patient admitted / discharged? Hospital course, mention meds given and route, prescriptions, significant lab abnormalities, going to OR and other pertinent info. @ -Discharge. This is a 54-year-old female presenting for nausea/vomiting x 3 months. Soft nontender. Initial triage blood pressure was 176/132 however blood pressure was rechecked during the initial history and examination and is found to be 145/87. Patient provided with IV fluids and Zofran while awaiting lab work. Lab work remarkable for lactic acidosis of 4.6, mild leukocytosis of 12, bicarb 17, mildly elevated liver enzymes, troponin 0.018. CT abdomen pelvis then obtained due to lactic acidosis and was negative for obstruction or strangulated hernia. There was watery content in the colon consistent with diarrhea. Patient provided with an additional Zofran dose while awaiting repeat troponin and lactic. Repeat troponin less than 0.012 and repeat lactic 3.2. Upon reevaluation, patient reports significant improvement of symptoms and is tolerating orals well. Discussed likely diagnosis of viral gastroenteritis. Appropriate return precautions and supportive care discussed. Patient was provided with starter pack of Zofran. Case was discussed with ED attending Dr. Ashby. Undiagnosed new problem with uncertain prognosis? @ -No Drug Therapy requiring intensive monitoring for toxicity (Heparin, Nitro, Insulin, Cardizem)? @ -No Were any procedures done? @ -No Diagnosis/symptom? @ -Viral gastroenteritis Acute, or Chronic, or Acute on Chronic? @ -Acute Uncomplicated (without systemic symptoms) or Complicated (systemic symptoms)? @ -Uncomplicated Side effects of treatment? @ -No Exacerbation, Progression, or Severe Exacerbation? @ -No Poses a threat to life or bodily function? How? (Chest pain, USA, ID, pneumonia, PE, COPD, DKA, ARF, appy, cholecystitis, CVA, Diverticulitis, Homicidal, Suicidal, threat to staff... and all critical care pts) @ -Not at this time - Lab Data Result diagrams: 08/06/24 19:26 08/06/24 19:26 Lab Results 08/06/24 08/06/24 08/06/24 Range/Units 19:26 19: 19: WBC 12.0 H (3.8-10.6) k/uL RBC 5.17 (3.80-5.40) m/uL Hgb 15.9 (11.4-16.0) gm/dL Hct 45.8 (34.0-46.0) % MCV 88.5 (80.0-100.0) fL MCH 30.7 (25.0-35.0) pg MCHC 34.7 (31.0-37.0) g/dL RDW 13.5 (11.5-15.5) % Plt Count 301 (150-450) k/uL MPV 8.6 Neutrophils % 76 % Lymphocytes % 18 % Monocytes % 3 % Eosinophils % 1 % Basophils % 0 % Neutrophils # 9.1 H (1.3-7.7) k/uL Lymphocytes # 2.2 (1.0-4.8) k/uL Monocytes # 0.3 (0-1.0) k/uL Eosinophils # 0.2 (0-0.7) k/uL Basophils # 0.0 (0-0.2) k/uL Sodium 137 (137-145) mmol/L Potassium 4.7 (3.5-5.1) mmol/L Chloride 101 (98-107) mmol/L Carbon Dioxide 17 L (22-30) mmol/L Anion Gap 19 mmol/L BUN 12 (7-17) mg/dL Creatinine 0.69 (0.52-1.04) mg/dL Est GFR (CKD-EPI)AfAm >90 (>60 ml/min/1.73 sqM) Est GFR (CKD-EPI)NonAf >90 (>60 ml/min/1.73 sqM) Glucose 170 H (74-99) mg/dL Lactic Ac Sepsis Rflx Plasma Lactic Acid Bib 4.6 H* (0.7-2.0) mmol/L Calcium 10.7 H (8.4-10.2) mg/dL Magnesium 1.9 (1.6-2.3) mg/dL Total Bilirubin 1.2 (0.2-1.3) mg/dL AST 45 H (14-36) U/L ALT 36 H (4-34) U/L Alkaline Phosphatase 97 (38-126) U/L Troponin I (0.000-0.034) ng/mL Total Protein 8.6 H (6.3-8.2) g/dL Albumin 5.5 H (3.5-5.0) g/dL Lipase 109 (23-300) U/L Urine Color Urine Appearance (Clear) Urine pH (5.0-8.0) Ur Specific [place] (1.001-1.035) Urine Protein (Negative) Urine Glucose (UA) (Negative) Urine Ketones (Negative) Urine Blood (Negative) Urine Nitrite (Negative) Urine Bilirubin (Negative) Urine Urobilinogen (<2.0) mg/dL Ur Leukocyte Esterase (Negative) Influenza Type A (PCR) (Not Detectd) Influenza Type B (PCR) (Not Detectd) RSV (PCR) (Not Detectd) SARS-CoV-2 (PCR) (Not Detectd) 08/06/24 08/06/24 08/06/24 Range/Units 19:26 19:38 20:18 WBC (3.8-10.6) k/uL RBC (3.80-5.40) m/uL Hgb (11.4-16.0) gm/dL Hct (34.0-46.0) % MCV (80.0-100.0) fL MCH (25.0-35.0) pg MCHC (31.0-37.0) g/dL RDW (11.5-15.5) % Plt Count (150-450) k/uL MPV Neutrophils % % Lymphocytes % % Monocytes % % Eosinophils % % Basophils % % Neutrophils # (1.3-7.7) k/uL Lymphocytes # (1.0-4.8) k/uL Monocytes # (0-1.0) k/uL Eosinophils # (0-0.7) k/uL Basophils # (0-0.2) k/uL Sodium (137-145) mmol/L Potassium (3.5-5.1) mmol/L Chloride (98-107) mmol/L Carbon Dioxide (22-30) mmol/L Anion Gap mmol/L BUN (7-17) mg/dL Creatinine (0.52-1.04) mg/dL Est GFR (CKD-EPI)AfAm (>60 ml/min/1.73 sqM) Est GFR (CKD-EPI)NonAf (>60 ml/min/1.73 sqM) Glucose (74-99) mg/dL Lactic Ac Sepsis Rflx Y Plasma Lactic Acid Bib (0.7-2.0) mmol/L Calcium (8.4-10.2) mg/dL Magnesium (1.6-2.3) mg/dL Total Bilirubin (0.2-1.3) mg/dL AST (14-36) U/L ALT (4-34) U/L Alkaline Phosphatase (38-126) U/L Troponin I 0.018 (0.000-0.034) ng/mL Total Protein (6.3-8.2) g/dL Albumin (3.5-5.0) g/dL Lipase (23-300) U/L Urine Color Urine Appearance (Clear) Urine pH (5.0-8.0) Ur Specific [place] (1.001-1.035) Urine Protein (Negative) Urine Glucose (UA) (Negative) Urine Ketones (Negative) Urine Blood (Negative) Urine Nitrite (Negative) Urine Bilirubin (Negative) Urine Urobilinogen (<2.0) mg/dL Ur Leukocyte Esterase (Negative) Influenza Type A (PCR) Not Detected (Not Detectd) Influenza Type B (PCR) Not Detected (Not Detectd) RSV (PCR) Not Detected (Not Detectd) SARS-CoV-2 (PCR) Not Detected (Not Detectd) 08/06/24 08/06/24 08/07/24 Range/Units 20:37 22:14 00:36 WBC (3.8-10.6) k/uL RBC (3.80-5.40) m/uL Hgb (11.4-16.0) gm/dL Hct (34.0-46.0) % MCV (80.0-100.0) fL MCH (25.0-35.0) pg MCHC (31.0-37.0) g/dL RDW (11.5-15.5) % Plt Count (150-450) k/uL MPV Neutrophils % % Lymphocytes % % Monocytes % % Eosinophils % % Basophils % % Neutrophils # (1.3-7.7) k/uL Lymphocytes # (1.0-4.8) k/uL Monocytes # (0-1.0) k/uL Eosinophils # (0-0.7) k/uL Basophils # (0-0.2) k/uL Sodium (137-145) mmol/L Potassium (3.5-5.1) mmol/L Chloride (98-107) mmol/L Carbon Dioxide (22-30) mmol/L Anion Gap mmol/L BUN (7-17) mg/dL Creatinine (0.52-1.04) mg/dL Est GFR (CKD-EPI)AfAm (>60 ml/min/1.73 sqM) Est GFR (CKD-EPI)NonAf (>60 ml/min/1.73 sqM) Glucose (74-99) mg/dL Lactic Ac Sepsis Rflx Plasma Lactic Acid Bib 3.2 H* (0.7-2.0) mmol/L Calcium (8.4-10.2) mg/dL Magnesium (1.6-2.3) mg/dL Total Bilirubin (0.2-1.3) mg/dL AST (14-36) U/L ALT (4-34) U/L Alkaline Phosphatase (38-126) U/L Troponin I <0.012 (0.000-0.034) ng/mL Total Protein (6.3-8.2) g/dL Albumin (3.5-5.0) g/dL Lipase (23-300) U/L Urine Color Light Yellow Urine Appearance Clear (Clear) Urine pH 7.0 (5.0-8.0) Ur Specific [place] 1.010 (1.001-1.035) Urine Protein Negative (Negative) Urine Glucose (UA) Negative (Negative) Urine Ketones 2+ H (Negative) Urine Blood Negative (Negative) Urine Nitrite Negative (Negative) Urine Bilirubin Negative (Negative) Urine Urobilinogen <2.0 (<2.0) mg/dL Ur Leukocyte Esterase Negative (Negative) Influenza Type A (PCR) (Not Detectd) Influenza Type B (PCR) (Not Detectd) RSV (PCR) (Not Detectd) SARS-CoV-2 (PCR) (Not Detectd) - EKG Data -: EKG Interpreted by Al EKG Comments: EKG reveals normal sinus rhythm with no ST changes. Ventricular rate 62 bpm, NJ interval 183, QRS duration 103, QT/QTc 440/444 Disposition Clinical Impression: Viral gastroenteritis Disposition: HOME SELF-CARE Condition: Stable Instructions (If sedation given, give patient instructions): Gastroenteritis (ED) Additional Instructions: Take Zofran as needed for nausea. Please return to the Emergency Department if symptoms worsen or any other concerns. Is patient prescribed a controlled substance at d/c from ED?: No Referrals: Nick Dennis DO [Primary Care Provider] - 1-2 days Time of Disposition: 01:30
[2024-08-06] MEDS: ONDANSETRON 4 MG/2 ML VIAL IVP STA ×2 (19:32→22:30)
[2024-08-06] MEDS: SODIUM CHLORIDE 0.9% 1,000 ML IV STA (19:32)
[2024-08-06 19:34] LABS: Basophils % (A) 0 %; Eosinophils # (A) 0.2 k/uL (0-0.7); Eosinophils % (A) 1 %; HCT 45.8 % (34.0-46.0); HGB 15.9 gm/dL (11.4-16.0); Lymphocytes # (A) 2.2 k/uL (1.0-4.8); Lymphocytes % (A) 18 %; MCH 30.7 pg (25.0-35.0); MCHC 34.7 g/dL (31.0-37.0); MCV 88.5 fL (80.0-100.0); Mean Platelet Volume 8.6; Monocytes # (A) 0.3 k/uL (0-1.0); Monocytes % (A) 3 %; Neutrophils # (A) 9.1 k/uL (1.3-7.7); Neutrophils % (A) 76 %; Platelet Count 301 k/uL (150-450); RBC 5.17 m/uL (3.80-5.40); RDW 13.5 % (11.5-15.5)
[2024-08-06 19:53] LABS: ALT 36 U/L (4-34); African American GFR (CKD) >90 (>60 ml/min/1.73 sqM); Anion Gap 19 mmol/L; Blood Urea Nitrogen 12 mg/dL (7-17); Calcium 10.7 mg/dL (8.4-10.2); Carbon Dioxide 17 mmol/L (22-30); Chloride 101 mmol/L (98-107); Glucose 170 mg/dL (74-99); Lipase 109 U/L (23-300); Magnesium 1.9 mg/dL (1.6-2.3); Non-African American GFR(CKD) >90 (>60 ml/min/1.73 sqM); Sodium 137 mmol/L (137-145); Total Bilirubin 1.2 mg/dL (0.2-1.3)
[2024-08-06 19:55] LABS: AST 45 U/L (14-36); Albumin 5.5 g/dL (3.5-5.0); Alkaline Phosphatase 97 U/L (38-126); Potassium 4.7 mmol/L (3.5-5.1); Total Protein 8.6 g/dL (6.3-8.2)
[2024-08-06 20:27] LABS: Influenza A Not Detected (Not Detectd); Influenza B Not Detected (Not Detectd); RSV Not Detected (Not Detectd)
[2024-08-06 20:49] LABS: Appearance,Urine Clear (Clear); Bilirubin,Urine Negative (Negative); Blood,Urine Negative (Negative); Color,Urine Light Yellow; Glucose,Urine (UA) Negative (Negative); Ketones,Urine 2+ (Negative); Leukocyte Esterase,Urine Negative (Negative); Nitrite,Urine Negative (Negative); Protein,Urine Negative (Negative); Urobilinogen,Urine <2.0 mg/dL (<2.0)
--- NOTE | 2024-08-06 21:32 | CT ---
EXAMINATION TYPE: CT abdomen pelvis w con DATE OF EXAM: 08/06/2024 9:15 PM COMPARISON: 04/30/2004 CLINICAL INDICATION: Female, 54 years old with history of abdominal pain, acute, nonlocalized; Pt sta mariah that she is unable to move her arms and legs due to them being numb/in pain. Per she did walk from car. States that it started around 4 pm this afternoon. Pt has N/V. Denies SOB. States she has back pain and stomach pain. TECHNIQUE: Axial CT abdomen pelvis w con;Sagittal and coronal reformats were created on a separate w orkstation. Contrast used:100 ml mL of Isovue 300 with IV Contrast, (none if empty) Oral contrast used: without Oral Contrast (none if empty) CT DLP: 1922.10 mGycm, Automated exposure control for dose reduction was used. FINDINGS: LOWER CHEST: Unremarkable ABDOMEN LIVER: Diffusely hypoattenuating parenchyma. GALLBLADDER AND BILE DUCTS: The gallbladder is surgically absent. PANCREAS: Unremarkable. SPLEEN: Unremarkable. ADRENAL GLANDS: Unremarkable. KIDNEYS AND URETERS: No evidence of hydronephrosis or renal calculus. The ureters are unremarkable. PELVIS BLADDER: No evidence for wall thickening or mass given limitations of exam. REPRODUCTIVE: The uterus is surgically absent. ABDOMEN & PELVIS STOMACH AND BOWEL: No evidence of bowel obstruction. Bloody content;. Neoplasm is not visualized and may be surgically absent. PERITONEUM/RETROPERITONEUM: No evidence of pneumoperitoneum or free fluid. VASCULATURE: No evidence of aortic aneurysm. MUSCULOSKELETAL: No acute osseous abnormalities LYMPH NODES: No gross evidence for lymphadenopathy. SOFT TISSUE/ABDOMINAL WALL: Bilateral fat-containing inguinal hernias. Left greater than right. Multi ple ventral wall hernias: superiorly which contains portion of large bowel wall, More inferiorly fat- containing umbilical hernia, with 2 additional hernias below the umbilicus containing loops of small bowel no evidence for obstruction.. IMPRESSION: 1. Ventral hernias containing portions of small and large bowel compatible with Drew hernia. No e vidence for obstruction. 2. Hepatic steatosis. 3. Watery content in the colon correlate for diarrhea. [facility], , 08/06/2024 9:30 PM
[2024-08-07] MEDS: ONDANSETRON 4 MG ODT STARTER PACK 2 TAB BTL PO STA (01:43)
[2024-08-07 01:48] VITALS: BP 117/66; PULSE 72; RESP 19; TEMP 99
== END 2024-08-07 01:54 | disposition home or self-care (01) ==
LOC: EC 18:59
DX: A08.4 Viral intestinal infection, unspecified (principal)
CPT/HCPCS: 36415; 93005; 80053; 83605 ×2; 83690; 83735; 84484; 85025; 81003; 87636; 74177; 99284; 96374; 96376; 96361; J2405; S0119; Q9967